=== PATIENT | male | born 1960 | race Caucasian/White ===

== ENCOUNTER 2020-03-18 16:50 | Emergency (ER) | payer OTHER ==
[~2020-03-18] VITALS: Ht 167.6 cm; Wt 74.8 kg
--- NOTE | 2020-03-18 16:55 | NUR ---
Patient to ER bed 06 to gown for evaluation. Side rails up.
[2020-03-18 17:03] VITALS: BP_SYST 145
[2020-03-18 17:39] LABS: BASOPHILS # (AUTO) 0.1 K/uL (0.0-0.2); BASOPHILS % (AUTO) 1.2 % (0.0-2.0); EOSINOPHILS # (AUTO) 0.1 K/uL (0.0-0.4); EOSINOPHILS % (AUTO) 1.3 % (0.0-4.0); HEMATOCRIT 47.3 % (36-54); HEMOGLOBIN 15.6 g/dL (14.0-18.0); LYMPHOCYTES % (AUTO) 37.6 % (20.5-51.5); MEAN CORPUSCULAR HEMOGLOBIN 29 pg (27-31); MEAN CORPUSCULAR HGB CONC 33 % (32-36); MEAN CORPUSCULAR VOLUME 88 fL (79.0-98.0); MONOCYTES # (AUTO) 0.5 K/uL (0.0-1.0); MONOCYTES % (AUTO) 9.1 % (1.7-9.3); NEUTROPHILS # (AUTO) 2.7 K/uL (1.8-7.7); NEUTROPHILS % (AUTO) 50.8 % (40.0-70.0); PLATELET COUNT (AUTO) 129 K/uL (130-430); RED BLOOD CELL COUNT(AUTO) 5.39 MIL/uL (4.2-6.2); RED CELL DISTRIBUTION WIDTH 14.3 % (9.0-15.0); WHITE BLOOD COUNT (AUTO) 5.4 K/uL (4.8-10.8)
--- NOTE | 2020-03-18 17:49 | NUR ---
Patient brought in by Medical Transport from [facility] for medical clearance to [facility]. Patient is uncooperative, unredirectable, wandering into rooms, and inappropriate behaviro. Patient has history of schizoaffective, depression, schizophrenia, anxiety, gastritis, hypothyroidism, and MDD. Denies any pain. No other complaints/injuries per patient or as noted. Will continue to monitor.
--- NOTE | 2020-03-18 17:51 | NUR ---
ER Dr. Shoemaker at bedside examining patient.
[2020-03-18 18:02] LABS: ANION GAP 7 (5-15); CALCIUM 8.8 mg/dL (8.4-11.0); CHLORIDE 104 mmol/L (98-107); CREATININE 0.96 mg/dL (0.55-1.30); GLUCOSE 94 mg/dL (70-99); POTASSIUM 4.1 mmol/L (3.5-5.1); SODIUM SERUM 141 mmol/L (136-145); UREA NITROGEN, BLOOD 26 mg/dL (8-21)
[2020-03-18 18:08] LABS: ALANINE AMINOTRANSFERASE 32 U/L (12-78); ALBUMIN 4.1 g/dL (3.4-4.8); ASPARTATE AMINOTRANSFERASE 30 U/L (10-37); TOTAL BILIRUBIN 0.7 mg/dL (0.0-1.0)
[2020-03-18 18:13] LABS: ACETAMINOPHEN < 1 ug/mL (1-30); ALCOHOL, BLOOD < 3 mg/dL (<10); GFR AFRICAN AMERICAN 103 mL/min (>90)
--- NOTE | 2020-03-18 19:23 | NUR ---
Patient to be transferred to [facility] Room 51. Is being transferred due to higher level of care. Receiving facility has accepting physician and available space. ER physician has signed transfer form. Patient or responsible constitution party has agreed to transfer and signed form. Patient belongings inventoried and will be sent with patient. Copy of nursing notes, lab reports, EKG, Physicians Orders and X-rays to be sent with patient. Report called to RED Correa at receiving facility. Receiving physician is Dr. Julian. [facility] has been called for transfer. ETA is [id number]
[2020-03-18 19:45] VITALS: BP_SYST 132
--- NOTE | 2020-03-18 19:45 | NUR ---
[facility]. Patient transferred at this time via BLS transport in stable condition
== END 2020-03-18 19:45 ==
LOC: SED 16:50
DX: Z13.30 Encounter for screening examination for mental health and behavioral disorders, unspecified (principal); Z20.828 Contact with and (suspected) exposure to other viral communicable diseases
CPT/HCPCS: 36415; 80053; 84484; 85025; 87081; 87426; 99285; G0480; G0481; G0482